=== PATIENT | female | born 1955 | race African-American/Black ===

== ENCOUNTER 2020-03-23 19:34 | Emergency (ER) | payer MEDICARE ==
[2020-03-23] MEDS ORDERED: Sodium Chloride 0.9% 1,000 ML ONE (19:50)
[2020-03-23] MEDS ORDERED: Prochlorperazine 10 MG/2 ML VIAL ONE (19:50)
[2020-03-23] MEDS ORDERED: Fentanyl 100 MCG/2 ML VIAL ONE (20:03)
[2020-03-23 20:12] LABS: #Basophils 0.2 thou/uL (0.0-0.2); #Eosinphils 0.4 thou/uL (0.0-0.7); #Lymphocytes 2.9 thou/uL (1.20-3.40); #Monocytes 0.6 thou/uL (0.11-0.59); #Neutrophils 1.9 thou/uL (1.40-6.50); %Basophils 2.6 % (0.0-1.0); %Eosinophils 6.9 % (0.0-10.0); %Lymphocytes 48.8 % (21.0-51.0); %Monocytes 9.9 % (0.0-10.0); %Neutrophils 31.8 % (42.0-75.0); Hemoglobin 14.7 g/dL (12.0-16.0); Mean Corpuscular HGB CONC 32.7 g/dL (32.0-36.0); Mean Corpuscular Hemoglobin 29.8 pg (27.0-31.0); Mean Corpuscular Volume 91.3 fL (78.0-98.0); Platelet Count 211 thou/uL (130-400); RBC Distribution Width 12.4 % (11.5-14.5); Red Blood Cell (RBC) Count 4.94 mill/uL (4.20-5.40)
[2020-03-23 20:26] LABS: ALT (SGPT) 21 U/L (8-55); AST (SGOT) 23 U/L (5-34); Albumin 4.4 g/dL (3.4-4.8); Alkaline Phosphatase 110 U/L (40-110); Anion Gap 21 mmol/L (10-20); BUN (Urea Nitrogen) 13 mg/dL (9.8-20.1); Bilirubin, Total 0.6 mg/dL (0.2-1.2); Calc. Creatinine Clearance 0 mL/min (70-130); Calcium 10.2 mg/dL (7.8-10.44); Carbon Dioxide 20 mmol/L (23-31); Chloride 109 mmol/L (98-107); Estimated GFR-MDRD 87; Globulin 3.4 g/dL (2.4-3.5); Glucose 124 mg/dL (80-115); Potassium 3.3 mmol/L (3.5-5.1); Protein, Total 7.8 g/dL (6.0-8.3); Sodium 147 mmol/L (136-145)
--- NOTE | 2020-03-23 20:50 | CT ---
CT OF ABDOMEN AND PELVIS 03/23/20 HISTORY: Left sided pain with nausea and vomiting. TECHNIQUE: Axial CT imaging at 5 mm intervals from the lung bases to the pubic symphysis without contrast. Coron al and sagittal reformatted imaging obtained. FINDINGS: The lack of contrast limits assessment of the viscera, bowel, vascular structures and for lymphadenop athy. Stable 7-8 mm pulmonary nodule noted within the right lower lobe. No free intraperitoneal air or fluid seen. There is a very large low density lesion in the right upper quadrant with Houn[place] u nits consistent with a simple cyst. This lesion is inseparable from the right lobe of the liver and the superior aspect of the right kidney and measures 10.7 x 10.6 x 12.3 cm. A large upper pole right renal cyst is favored. Gallbladder grossly unremarkable. There is a tiny hypodensity in the left lobe of the liver on axial image 12 measuring in the 6 mm range, too small to characterize. The spleen is unremarkable as is the pancreas and bilateral adrenal glands. The right adrenal gland is difficult t o visualize secondary to mass effect from the large cystic lesion within the right upper quadrant. There is left sided hydronephrosis and hydroureter secondary to an obstructing stone within the dista l left ureter on axial image 66 measuring approximately 4 mm on axial imaging and approximately 5-6 m m on craniocaudal imaging. This is approximately 1-2 cm proximal to the ureterovesicular junction. Limited assessment of the bowel appears unremarkable. Review of the osseous structures demonstrates n o acute findings. IMPRESSION: 1. Obstructive uropathy on the left secondary to a 5-6 mm obstructing stone within the distal le ft ureter. 2. Large cystic lesion in the right upper quadrant felt to most likely represent a large exophyt ic cyst emanating from the upper pole of the right kidney. 3. 7 mm pulmonary nodule within the right lower lobe for which a follow-up chest CT is advised i n one year. Of note, this is a stable finding when compared to chest CT performed 03/31/19. POS: MICHELLE
[2020-03-23] MEDS ORDERED: Labetalol 100 MG TAB ONE (20:59)
[2020-03-23] MEDS ORDERED: Ketorolac Tromethamine 30 MG/ML VIAL ONE (20:59)
[2020-03-23 21:06] LABS: Bilirubin Negative (Negative); Blood, Urine Trace (Negative); Clarity Clear (Clear); Glucose, Urine (Dipstick) Negative (Negative); Leukocyte Negative (Negative); Nitrite Negative (Negative); Protein, Urine (Dipstick) Negative (Neg-Trace); Urobilinogen 0.2 mg/dL (Less than 2)
[2020-03-23] MEDS ORDERED: Morphine 4 MG/ML VIAL ONE (21:11)
[2020-03-23] MEDS ORDERED: Lisinopril 10 MG TAB ONE (21:12)
[2020-03-23] MEDS ORDERED: Tamsulosin HCl 0.4 MG CAP ONE (21:12)
[2020-03-23 21:13] LABS: Bacteria/HPF None Seen HPF (None Seen); Squamous Epithelial 0-3 HPF (0-3); WBC/HPF 0-3 HPF (0-3)
[2020-03-23] MEDS ORDERED: Potassium Chloride 20 MEQ/100 ML PREMIX BAG ONE (21:24)
[2020-03-23] MEDS ORDERED: HYDROcodone/Acetaminophen 10/325 mg Tablet ONE (23:30)
== END 2020-03-23 23:30 | disposition home or self-care (01) ==
LOC: MADERS 19:34
DX: N13.2 Hydronephrosis with renal and ureteral calculous obstruction (principal); E87.0 Hyperosmolality and hypernatremia; E87.8 Other disorders of electrolyte and fluid balance, not elsewhere classified; K21.9 Gastro-esophageal reflux disease without esophagitis; I10 Essential (primary) hypertension; M19.90 Unspecified osteoarthritis, unspecified site; Z86.73 Personal history of transient ischemic attack (TIA), and cerebral infarction without residual deficits; Z79.899 Other long term (current) drug therapy; Z79.82 Long term (current) use of aspirin
CPT/HCPCS: 74176; 80053; 81003; 81015; 85025; 96361; 96365; 96375; J0780; J1885; J2270; J3010; J3480; J7050

== ENCOUNTER 2021-01-27 18:26 | Outpatient (CLI) | payer MEDICARE ==
[2021-01-27 18:38] LABS: #Basophils 0.1 thou/uL (0.0-0.2); #Eosinphils 0.3 thou/uL (0.0-0.7); #Monocytes 0.6 thou/uL (0.11-0.59); #Neutrophils 1.8 thou/uL (1.40-6.50); %Basophils 1.9 % (0.0-1.0); %Eosinophils 6.6 % (0.0-10.0); %Lymphocytes 41.7 % (21.0-51.0); %Monocytes 13.1 % (0.0-10.0); %Neutrophils 36.7 % (42.0-75.0); Hemoglobin 14.6 g/dL (12.0-16.0); Mean Corpuscular HGB CONC 31.7 g/dL (32.0-36.0); Mean Corpuscular Volume 94.6 fL (78.0-98.0); Mean Platelet Volume 8.1 fL (7.4-10.4); Platelet Count 230 thou/uL (130-400); RBC Distribution Width 12.4 % (11.5-14.5); Red Blood Cell (RBC) Count 4.87 mill/uL (4.20-5.40); White Blood Cell (WBC) Count 4.8 thou/uL (4.8-10.8)
[2021-01-27 18:39] LABS: ALT (SGPT) 35 U/L (8-55); AST (SGOT) 30 U/L (5-34); Alkaline Phosphatase 111 U/L (40-110); Anion Gap 14 mmol/L (10-20); BUN (Urea Nitrogen) 11 mg/dL (9.8-20.1); Bilirubin, Total 0.6 mg/dL (0.2-1.2); Calc. Creatinine Clearance 0 mL/min (70-130); Calcium 9.2 mg/dL (7.8-10.44); Carbon Dioxide 28 mmol/L (23-31); Cardiac Risk 2.2 (Less than 4.5); Chloride 104 mmol/L (98-107); Cholesterol 172 mg/dl (< 200 Desired); Globulin 3.3 g/dL (2.4-3.5); Glucose 120 mg/dL (80-115); HDL Cholesterol 77 mg/dL (>60 Neg Risk); LDL Cholesterol, Calculated 79 mg/dL; Potassium 3.4 mmol/L (3.5-5.1); Protein, Total 7.3 g/dL (5.8-8.1); Sodium 143 mmol/L (136-145); Triglycerides 81 mg/dL (Less than 150)
== END 2021-01-27 18:27 | disposition home or self-care (01) ==
LOC: MADLAB 18:26
PROVIDERS: ATTEND Family Medicine
DX: I10 Essential (primary) hypertension (principal); E78.2 Mixed hyperlipidemia
CPT/HCPCS: 36415; 80053; 80061; 85025

== ENCOUNTER 2022-03-05 16:59 | Emergency (ER) | payer MEDICAID, MEDICARE ==
[2022-03-05 17:33] LABS: Bilirubin Negative (Negative); Blood, Urine Negative (Negative); Glucose, Urine (Dipstick) Negative (Negative); Ketone, Urine Negative (Negative); Leukocyte Negative (Negative); Nitrite Negative (Negative); Protein, Urine (Dipstick) Negative (Neg-Trace); Specific Gravity, Urine 1.025 (1.005-1.030); Urobilinogen 0.2 mg/dL (Less than 2)
[2022-03-05 17:34] LABS: Clarity Hazy (Clear)
[2022-03-05 18:23] LABS: #Basophils 0.1 thou/uL (0.0-0.2); #Eosinphils 0.3 thou/uL (0.0-0.7); #Lymphocytes 2.1 thou/uL (1.20-3.40); #Monocytes 0.6 thou/uL (0.11-0.59); #Neutrophils 2.3 thou/uL (1.40-6.50); %Basophils 1.6 % (0.0-1.0); %Eosinophils 6.2 % (0.0-10.0); %Lymphocytes 38.2 % (21.0-51.0); %Monocytes 10.5 % (0.0-10.0); %Neutrophils 43.5 % (42.0-75.0); Mean Corpuscular HGB CONC 32.4 g/dL (32.0-36.0); Mean Corpuscular Hemoglobin 29.4 pg (27.0-31.0); Mean Corpuscular Volume 90.7 fL (78.0-98.0); Platelet Count 217 thou/uL (130-400); RBC Distribution Width 12.3 % (11.5-14.5); Red Blood Cell (RBC) Count 4.76 mill/uL (4.20-5.40); White Blood Cell (WBC) Count 5.4 thou/uL (4.8-10.8)
[2022-03-05 18:37] LABS: ALT (SGPT) 18 U/L (8-55); AST (SGOT) 21 U/L (5-34); Alkaline Phosphatase 103 U/L (40-110); Anion Gap 16 mmol/L (10-20); BUN (Urea Nitrogen) 18 mg/dL (9.8-20.1); Bilirubin, Total 0.7 mg/dL (0.2-1.2); Calc. Creatinine Clearance 0 mL/min (70-130); Calcium 10.9 mg/dL (7.8-10.44); Carbon Dioxide 29 mmol/L (23-31); Chloride 105 mmol/L (98-107); Globulin 3.6 g/dL (2.4-3.5); Glucose 133 mg/dL (80-115); Potassium 3.6 mmol/L (3.5-5.1); Protein, Total 7.6 g/dL (5.8-8.1); Sodium 146 mmol/L (136-145)
[2022-03-05] MEDS ORDERED: Orphenadrine Citrate 60 MG/2 ML VIAL ONE (19:36)
== END 2022-03-05 20:05 | disposition home or self-care (01) ==
LOC: MADERS 16:59
DX: R10.9 Unspecified abdominal pain (principal); I10 Essential (primary) hypertension; K21.9 Gastro-esophageal reflux disease without esophagitis; Z79.899 Other long term (current) drug therapy
CPT/HCPCS: 36415; 74176; 80053; 81003; 85025; 96372; J2360

== ENCOUNTER 2022-03-15 19:14 | Emergency (ER) | payer MEDICARE, MEDICAID | END 2022-03-15 19:58 | disposition home or self-care (01) | LOC: MADERS 19:14 | DX: I10 Essential (primary) hypertension (principal); K21.9 Gastro-esophageal reflux disease without esophagitis; Z79.899 Other long term (current) drug therapy | CPT/HCPCS: 99283 ==

== ENCOUNTER 2022-05-12 11:10 | Emergency (ER) | payer MEDICARE, MEDICAID | END 2022-05-12 12:15 | disposition home or self-care (01) | LOC: MADERS 11:10 | DX: M43.6 Torticollis (principal); I10 Essential (primary) hypertension; K21.9 Gastro-esophageal reflux disease without esophagitis; M19.90 Unspecified osteoarthritis, unspecified site; Z86.73 Personal history of transient ischemic attack (TIA), and cerebral infarction without residual deficits; Z79.82 Long term (current) use of aspirin; Z79.899 Other long term (current) drug therapy | CPT/HCPCS: 99283 ==